=== PATIENT | female | born 1980 | race Caucasian/White ===

== ENCOUNTER 2017-11-21 19:41 | Emergency (ER) | payer SELFPAY ==
[~2017-11-21] VITALS: Ht 162.6 cm; Wt 70.0 kg
[2017-11-21 20:51] VITALS: BP 156/72; PULSE 124; RESP 24; TEMP 98.9; O2SAT 98
[2017-11-21 23:11] VITALS: PULSE 89; RESP 18; O2SAT 98
[2017-11-21] MEDS ORDERED: PENI500T PO (23:14)
[2017-11-21] MEDS ORDERED: ZOFR4TAB PO (23:14)
[2017-11-21] MEDS ORDERED: MAGICADU2 SWISH-SPIT (23:14)
[2017-11-21] MEDS ORDERED: TYLETAB34 PO (23:14)
--- NOTE | 2017-11-21 23:19 | PD ---
HPI Chief Complaint: Oral / Dental Pain or Problem Time Seen by Provider: 23:06 Travel History International Travel<30 days: No Contact w/Intl Traveler<30days: No Traveled to known affect area: No History of Present Illness HPI This is a 37-year-old female presents for evaluation of post extraction dental pain. She reports that 8 days ago she had her left mandibular third molar extracted in [place]. Initially she was doing well with minimal pain. She traveled here for vacation a few days ago and for the past 2 days she has been having increased pain. Pain is a pulsating pain which is constant, worse when chewing. Denies any fevers, chills. She has no other complaints at this time. [facility] Past Medical History Medical History: Denies Significant Hx ?: Not : 1 Para: 1 Past Surgical History Surgical History: No Previous Surgery Social History Alcohol Use: Yes Tobacco Use: Yes Substance Use: No Allergies-Medications (Allergen,Severity, Reaction): Coded Allergies: No Known Allergies (Unverified , 11/21/17) Reported Meds & Prescriptions Reported Meds & Active Scripts Active Penicillin V Potassium 500 Mg Tab 500 Mg PO Q8H 7 Days Magic Mouthwash Adult Liq (Multi-Ingredient Mouthwash/Gargle) 120 Ml Susp 10 Ml SWISH-SPIT ACHS Each 5mL contains: Nystatin 200,000units, Diphenhydramine 4.25mg, Viscous Lidocaine 10mg, [place] syrup 0.8 mL Zofran (Ondansetron HCl) 4 Mg Tab 4 Mg PO Q6HR PRN Tylenol-Codeine #3 (Acetaminophen-Codeine) 300-30 mg Tab 1 Tab PO Q6H PRN Review of Systems General / Constitutional: No: Fever, Chills HENT: Positive: Dental Difficulties Physical Exam Narrative GENERAL: Developed well-nourished female no acute distress SKIN: Warm and dry. HEAD: Atraumatic. Normocephalic. EYES: Pupils equal and round. No scleral icterus. No injection or drainage. ENT: No nasal bleeding or discharge. Mucous membranes pink and moist. The postextraction site is mildly erythematous. There is no fluctuance or drainage. Tender to palpation. No trismus. NECK: Trachea midline. No JVD. No lymphadenopathy CARDIOVASCULAR: Regular rate and rhythm. No murmur appreciated. RESPIRATORY: No accessory muscle use. Clear to auscultation. Breath sounds equal bilaterally. Data Data Last Documented VS Vital Signs Date Time Temp Pulse Resp B/P (MAP) Pulse Ox O2 Delivery O2 Flow Rate FiO2 11/21/17 23:11 89 18 98 Room Air 11/21/17 20:51 98.9 Orders Orders Ed Discharge Order (11/21/17 23:16) MDM Medical Decision Making Medical Screen Exam Complete: Yes Emergency Medical Condition: Yes Differential Diagnosis Post extraction dental pain, alveolar osteitis, post extraction dental infection Narrative Course The patient will be given prescriptions for penicillin, Zofran, Tylenol with Codeine, ibuprofen. She is stable for discharge. Diagnosis Primary Impression: Status post tooth extraction Additional Instructions: Medication as prescribed. Clove oil on cotton balls. Follow-up with your dentist. Return for any emergent medical conditions. Med/Other Pt SpecificInfo: Prescription(s) given Scripts Penicillin V Potassium (Penicillin V Potassium) 500 Mg Tab 500 MG PO Q8H for Infection for 7 Days, #21 TAB 0 Refills Prov: Lee Maldonado MD 11/21/17 Gfkjduzz-Njcsxaoghuuyhad-[place]sh[place] Liq (Magic Mouthwash Adult Liq) 120 Ml Susp 10 ML SWISH-SPIT ACHS for Mouth sores, #120 ML 0 Refills Each 5mL contains: Nystatin 200,000units, Diphenhydramine 4.25mg, Viscous Lidocaine 10mg, [place] syrup 0.8 mL Prov: Lee Maldonado MD 11/21/17 Ondansetron (Zofran) 4 Mg Tab 4 MG PO Q6HR Y for NAUSEA OR VOMITING, #20 TAB 0 Refills Prov: Lee Maldonado MD 11/21/17 Acetaminophen-Codeine (Tylenol-Codeine #3) 300-30 mg Tab 1 TAB PO Q6H Y for PAIN, #20 TAB 0 Refills Prov: Lee Maldonado MD 11/21/17 Disposition: 01 DISCHARGE HOME Condition: Stable López Gamez Nov 21, 2017 23:19
== END 2017-11-21 23:53 | disposition home or self-care (01) ==
LOC: NEPD 19:41
DX: K08.89 Other specified disorders of teeth and supporting structures (principal); Z72.0 Tobacco use
CPT/HCPCS: 99283